=== PATIENT | male | born 1965 | race Caucasian/White ===

== ENCOUNTER 2016-08-19 13:04 | Day surgery (SDC) | payer OTHER ==
[~2016-08-19] VITALS: Ht 177.8 cm; Wt 75.0 kg
--- NOTE | 2016-08-19 08:38 | PCM.HPANE ---
Patient Data Surgeon Admitting Provider: Attending Provider:Lee Lucas MD Primary Care Physician:Madi Cox MD Other Provider:Claudette Dialingham Anesthesia Reason for Visit Dysphagia Ht/WT & BMI Body Mass Index Allergies Coded Allergies: No Known Allergies (Verified Allergy, Unknown, 10/03/15) Past Anesthesia History Anesthesia History: Denies:: Abnormal Airway, Anesthesia Reactions, Difficult Intubation, Malignant Hyperthermia Diabetes History Hx Diabetes?: No MRSA MRSA: No Medications Hypertension Medication: No Home Meds Incl Beta Gurvinder: No Reported Medications Amoxicillin 875 Mg [id number] Mg PO BID Ref 0 08/19/16 Sennosides (Senna)8.6 Mg Tablet2 Tab PO HS 08/18/16 Ranitidine 150 Mg Dflchbe578 Mg PO BID Ref 0 08/18/16 oxyCODONE-Acetaminophen 10-325 mg 1 Each Tablet1 Tablet PO Q6H PRN For Pain Ref 0 08/18/16 Polyethylene Glycol 3350 (Miralax)17 Gm Powd.pack17 Gm PO DAILY 08/18/16 Cholecalciferol (Vitamin D3) (Vitamin D)50,000 Unit Vvzmxdu44,000 Unit PO WEEKLY 08/18/16 Omeprazole-Expunged Drug, Do Not Renew! 20 Mg Tablet.dr20 Mg PO PRN 08/09/12 Discontinued Reported Medications Hydrocodone-Acetaminophen 5-300 mg 1 Each Tablet1 Tablet PO Q4H PRN For Pain Ref 0 08/18/16 Alendronate (Binosto)70 Mg Tablet.eff70 Mg PO WEEKLY 08/18/16 [tylenol] No Conflict Mgnvf948 Mg PO PRN 08/17/12 Doxycycline Hyclate (Doxycycline)100 Mg Sbt742 Mg PO BID 08/17/12 [Vicodin 10/325] No Conflict Ypmeh81-651 Mg PO Q4-6HP 10MG HYDROCODONE/325MG ACETAMINOPHEN 08/09/12 Gabapentin-Expunged Drug, Do Not Renew! (Neurontin-Expunged Drug, Do Not Renew!) 600 Mg Tablet1,200 Mg PO PRN 08/09/12 IBUPROFEN-Expunged Drug, Do Not Renew! 800 Mg Uogohs338 Mg PO TIDWM TAKE WITH FOOD 08/09/12 History History of ENT Problems?: Yes HEENT History: Positive for:: Hearing Problem Hx of Heart Problems?: Yes Cardiovascular History: Positive for:: Edema (PEDAL) Hypertension (ON NO MEDS) Irregular Heartbeat (C/OF PALPITATIONS) Hx of Respiratory Problem?: Yes Respiratory History: Positive for:: Chest Surgery (S/P LUNG RPR AFTER SPONTANEOUS PNEUMOTHORACES @ AGE 20 & 21) Denies:: Use of C-PAP Machine Hx Neurologic Problems?: Yes Neurological History: Positive for:: Headaches Seizures (2002 AFTER CLOSED HEAD INJURY) Hx of GI Problems?: Yes Gastrointestinal History: Positive for:: Gastroesphageal Reflux Heartburn Hx of Problems?: No Male Hx: Denies:: Prostate Problems Scrotal Mass Testicular Surgery Skin History: Denies:: History Skin Disorders? Pressure Ulcers Hx Musculoskeletal Problems?: Yes Musculoskeletal History: Positive for:: Back Injury Musculoskeletal Trauma (S/P LT LEG RPR, RT SHOULDER RPR) Hx of Psycho/Social Problems?: Yes Psycho Social History: Positive for:: Anxiety Hx Depression Hx Surgeries?: Yes (RT SHOULDER RPR,LT LEG RPR,LUNG RPR FOR SPONTANEOUS PNEUMOTHORACES) Hx Any Other Health Problems?: Yes Other History: Positive for:: Hospitalization (FALL/HEAD TRAUMA 2002) Denies:: Cancer Endocrine Disease Thyroid Disease History Blood Transfusions: Positive for:: Blood Transfusions Denies:: Blood Transfuse Reaction Hx Diabetes: No Hx Alcohol Use: NoHx Substance Use: No Smoking Status: Current Every Day Smoker Have You Smoked inLast 12 mo: Yes Stop/Bang Treated for Sleep Apnea?: No Do You Have a CPAP Machine?: No KOFI Risk Assessment: Low Risk, <3 Yes Risk Assessment Category Category 1A: Patient has history of documented sleep apnea, and HAS NOT received any narcotic, sedative or anesthesia administration during this stay. Category 1B: Patient has history of documented sleep apnea, and HAS received any narcotic , sedative or anesthesia administration during this stay Category 2: Patient has SUSPECTED Obstructive Sleep Apnea, and HAS received any narcotic , sedative or anesthesia administration during this stay. Category 3: Patient has SUSPECTED Obstructive Sleep Apnea and HAS NOT received narcotic, sedative or anesthesia administration during this stay. Category 4: Outpatient in Procedural Areas with known sleep apnea or who screen positive for High Risk via the STOP/BANG questionnaire. Exam Exam General Appearance: Alert, Oriented X3, Cooperative, No Acute Distress HEENT/AIRWAY: MP 2 Lungs: Clear to Auscultation, Normal Air Movement Heart: Exam Unremarkable, Regular Rate/Rhythm, No Murmurs/Rubs/Gallops Plan Impression Patient chart reviewed, patient interviewed and anesthestic plan with risks, benefits, and alternatives discussed, and informed consent obtained. ASA Physical Status: ASA2 Mod Systemic Disease Anesthetic Plan: MAC Bene/Risks/Altern/Consents: Yes HP Complete Prior to Induction: Yes Edmar Rivera MD Aug 19, 2016 08:38
[~2016-08-19 13:04] MED LIST: ALEN70TA51 PO; CHOL500050 PO; HYDR-3090 PO; Lactated Ringer's 1,000 ML IV ONE; OMEP20TA86 PO; OXYC-466 PO; POLY17PO6 PO; RANI150C4 PO; SENN-133 PO
[2016-08-19] MEDS ORDERED: Propofol 10,000 mCg/mL 20 mL Inj ONE (13:05)
[2016-08-19] MEDS ORDERED: Ketamine 10 mg/mL 20 mL Inj ONE (13:05)
[2016-08-19 13:41] VITALS: BP 129/76; PULSE 70; RESP 14; O2SAT 95
[2016-08-19] MEDS ORDERED: AMOX875T2 PO (13:56)
[2016-08-19 14:51] VITALS: BP 119/80; PULSE 73; RESP 16; O2SAT 93
[2016-08-19 15:00] VITALS: BP 124/85; PULSE 73; RESP 16; O2SAT 93
[2016-08-19 15:11] VITALS: BP 117/78; PULSE 71; RESP 16; O2SAT 94
--- NOTE | 2016-08-19 18:25 | ENDO ---
[address] [address] ENDOSCOPY PROCEDURE PATIENT: BRINA PAK : 1965 MR#: [id number] ADMIT: 08/19/2016 JOB ID: [id number] PRIMARY PROVIDER: Madi Cox MD. PROCEDURE: Esophagogastroduodenoscopy with biopsy. INDICATIONS: A 51-year-old male with recent completely resolved symptoms of dysphagia. He is currently using Zantac 150 mg twice per day. Endoscopic evaluation is pursued. EQUIPMENT: [id number]. SEDATION: Monitored anesthesia as provided by Dr. Edmar Rivera. COMPLICATIONS: None identified. PROCEDURE INFORMATION: After the risks and benefits were explained, written and verbal informed consent was obtained, the patient was brought into the endoscopy suite and placed into the left lateral decubitus position. Sedation was achieved using the above-stated medications with the addition of oxygen via nasal cannula. The scope was introduced into the mouth through the bite block, and advanced under direct visualization to the level of the second portion of the duodenum. The scope was slowly withdrawn to carefully examine the mucosa for any defects or lesions. Retroflexed views were accomplished in the stomach. The stomach was decompressed. The scope removed from the patient who tolerated the procedure well. FINDINGS: 1. Duodenum: Normal from the bulb through to the second portion. 2. Stomach: No ulcers, no mass lesions. No outlet obstruction. Moderate diffuse gastropathy was seen and random biopsies were taken for exclusion of Helicobacter or other pathology. Retroflexed views of the LES disclosed sliding hiatal hernia. 3. Esophagus: The squamocolumnar junction correlated roughly with the top of the gastric folds. The GE junction was at about 37 cm from the incisors. The pinchcock was at about 40 cm from the incisors. In the two o'clock location, there was evidence of extension of the salmon-colored mucosa ever so subtly above the level of the GE junction, which also corresponded with a linear erosion. 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 Photographs were taken. I did not see any Schatzki's. No strictures, no mass lesions. Biopsy again was taken from this small tongue at the level of the GEJ to exclude specialized intestinal metaplasia. The remainder of the esophagus appeared normal. ENDOSCOPIC DIAGNOSES: 1. Hiatal hernia. 2. LA grade B erosive esophagitis. 3. Irregular Z-line--biopsied to exclude Lgoan's. 4. Gastropathy. RECOMMENDATIONS: 1. Await histopathology. 2. Consider switching over to slightly more potent antisecretory therapy in the form of pantoprazole, in that even with Zantac, he appears to have his ongoing erosive esophagitis. 3. I would recommend a repeat EGD in 3-4 months to ensure complete resolution of the esophagitis if the biopsies are negative for Logan's. If, however, positive for Logan's, I think simply treating with PPI and repeat EGD in 9-12 months would be fine.
--- NOTE | 2016-08-20 08:52 | PCM.ANEP2 ---
Post Anesthesia Evaluation ASA/CMS Post Anesthesia VS in Patient's Normal Range?: Yes Resp Stable; Airway Patent?: Yes CV Function & Hydration Stable: Yes Mental Status Recovered?: Yes Pain control Satisfactory?: Yes N/V Control Satisfactory?: Yes Edmar Rivera MD Aug 20, 2016 08:52
--- NOTE | 2016-08-20 08:52 | PCM.ANEP1 ---
Post Anesthesia Phase 1 PACU Phase 1 Assessment Anesthetic Administered: MAC Level of Alertness: Awake, talking HUGO's with Equal Strength: Yes Pain: No Nausea or Vomiting: No Oxygen Delivery: Nasal Cannula Lungs: Clear to Auscultation, Normal Air Movement Dermatome Level: Full Sensation Edmar Rivera MD Aug 20, 2016 08:52
--- NOTE | 2016-08-21 15:04 | PATH ---
SURGICAL PATHOLOGY Attending Physician:Skye Rivera CASE STATUS: Signed Out PATIENT NAME: BRINA PAK PID: [id number] : 1965 DATE COLLECTED:08/19/2016 00:00 SPECIMEN: 1: Gastric, Biopsy 2: Esophagus, Biopsy CLINICAL HISTORY: 1. GASTRIC BX 2. GEJ BX FINAL DIAGNOSIS: 1.STOMACH, BIOPSY: BODY-TYPE MUCOSA WITH NO DIAGNOSTIC ABNORMALITY. Negative for Helicobacter organisms. Negative for intestinal metaplasia. Negative for dysplasia and malignancy. 2.GASTROESOPHAGEAL JUNCTION, BIOPSY: SQUAMOCOLUMNAR JUNCTIONAL MUCOSA WITH SPECIALIZED INTESTINAL METAPLASIA CONSISTENT WITH DE LA PAZ' S ESOPHAGUS. Negative for dysplasia and malignancy. ICD10 code K22.70 GROSS DESCRIPTION: The specimen is received in two formalin filled containers labeled with the patient's name. 1). The specimen is sublabeled "gastric" and consists of 2 portions of tissue which aggregate to 0.3 x 0.2 x 0.2 CM. The specimen is entirely submitted in cassette 1A. 2). The specimen is sublabeled " GEJ " and consists of a 0.2 x 0.2 x 0.1 CM portion of tissue which is entirely submitted in cassette 2A. 08/20/2016 DAC MICRO DESCRIPTION: See diagnosis. ICD-9 CODES: CPT CODES: 1: 99762 2: 13195 Electronically Signed Out Rosy Liu MD [facility] [address], [place] [address] Technical component performed at [facility], [facility] [address], [place], [address]
== END 2016-08-19 23:59 | disposition home or self-care (01) ==
LOC: END 13:04
PROVIDERS: ATTEND Internal Medicine Gastroenterology
DX: K44.9 Diaphragmatic hernia without obstruction or gangrene (principal); K20.9 Esophagitis, unspecified; R13.10 Dysphagia, unspecified; K31.9 Disease of stomach and duodenum, unspecified; Z79.899 Other long term (current) drug therapy; Z87.891 Personal history of nicotine dependence
CPT/HCPCS: 43239; 88305; J7120

== ENCOUNTER 2016-10-24 00:37 | Day surgery (SDC) | payer OTHER ==
[~2016-10-24 00:37] MED LIST changes: -ALEN70TA51 PO; +AMOX875T2 PO; -HYDR-3090 PO; -Lactated Ringer's 1,000 ML IV ONE
[2016-10-24 10:02] VITALS: BP 118/73; PULSE 60; RESP 16; O2SAT 96
--- NOTE | 2016-10-24 10:51 | NUR ---
jeremylast infusion pt tolerated infusion without adverse s/s edu provided re: medication and s/s to report; verbalizes understanding infusion confirmation faxed to Juma HAWKINS
== END 2016-10-24 23:59 | disposition home or self-care (01) ==
LOC: MOCO 00:37
PROVIDERS: ATTEND Nurse Practitioner
DX: M81.0 Age-related osteoporosis without current pathological fracture (principal)
CPT/HCPCS: 96365; J3489